=== PATIENT | female | born 1995 | race Caucasian/White ===

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

== ENCOUNTER 2017-10-05 01:00 | Outpatient (CLI) | payer OTHER ==
[2017-10-05 01:34] VITALS: BP 119/61; PULSE 90; RESP 16; TEMP 97.6
--- NOTE | 2017-10-22 08:37 | P.MSEPDOC ---
Presenting Problems - Arrival Data Date of Arrival on Unit: 10/05/17 Time of Arrival on Unit: 00:55 Mode of Transport: Wheelchair - Complaint OB-Reason for Admission/Chief Complaint: Vaginal Bleeding Comment: bright red bleeding during intercourse Medical History - Information : 1 Para: 0 Term: 0 : 0 Abortions: Spontaneous or Elective: 0 Number of Living Children: 0 - Gestational Age Gestational Age by MELBA (wks/days): 23 Weeks and 4 Days Review of Systems - Review of Systems Constitutional: No problems Breast: No problems ENT: No problems Cardiovascular: No problems Respiratory: No problems Gastrointestinal: No problems Genitourinary: No problems Musculoskeletal: No problems Neurological: No problems Skin: No problems Vital Signs - Temperature Temperature: 97.6 F Temperature Source: Temporal Artery Scan - Pulse Right Sitting Brachial Pulse Rate: 90 Pulse Assessment Method: Automatic Cuff - Respirations Respiratory Rate: 16 Oxygen Delivery Method: Room Air O2 Sat by Pulse Oximetry: 97 - Blood Pressure Right Arm Sitting Blood Pressure: 119/61 Blood Pressure Mean: 80 Blood Pressure Source: Automatic Cuff Medical Screen Scoring (Pre) - Cervical Exam Dilation: Exam Deferred Effacement: Exam Deferred Membranes: Intact - Uterine Contractions Frequency: N/A Duration: N/A Intensity: N/A - Maternal Vital Signs Maternal Temperature: N/A Maternal Blood Pressure: N/A Signs of Preeclampsia: N/A Maternal Respirations: N/A - Pain Assessment Pain Scale Used: Numeric (1 - 10) Pain Intensity: 0 - Maternal Trauma Maternal Trauma: N/A - Assessment Baseline FHR: 146 Heart Rate - NICHD Category: Category I (Normal) = 0 - Total Score Total Score (Pre): 0 - Level of Risk Level of Risk: Low (0-5) Physician Notification (Pre) - Physician Notified Physician Notified Date: 10/05/17 Physician Notified Time: 01:24 Physician/Practitioner Notifed:: valerie Spoke With: valerie New Order Received: Yes - Notification Comment Comment: observe for two hours, if bleeding slows/stops, perform doppler and then send home with instruction to f/u with nivamie early next week. Disposition - Disposition OB Disposition: Discharge to home Discharge Date: 10/05/17 Discharge Time: 03:43 I agree with the RN Medical Screening Exam: Yes Risk & Benefit of care provided described in d/c instruction: Yes Diagnosis: SPOTTING COMPLICATING , THIRD TRIMESTER
== END 2017-10-05 03:43 | disposition home or self-care (01) ==
LOC: FBPOP 01:00
PROVIDERS: ATTEND Obstetrics & Gynecology Obstetrics
DX: O26.852 Spotting complicating pregnancy, second trimester (principal); Z3A.23 23 weeks gestation of pregnancy
CPT/HCPCS: 99213

== ENCOUNTER 2018-01-27 10:29 | Outpatient (CLI) | payer BC, OTHER ==
[2018-01-27 13:18] VITALS: BP 133/62; PULSE 94; RESP 17
--- NOTE | 2018-01-28 12:01 | P.MSEPDOC ---
Presenting Problems - Arrival Data Date of Arrival on Unit: 01/27/18 Time of Arrival on Unit: 10:30 Mode of Transport: Wheelchair - Complaint OB-Reason for Admission/Chief Complaint: Possible Onset of Labor Comment: pt here with c/o contractions that are 4-5 minutes apart since this am , reports + fm, denies lof/vb, abd soft and non tender Medical History - Information : 1 Para: 0 Term: 0 : 0 Abortions: Spontaneous or Elective: 0 Number of Living Children: 0 - Gestational Age Gestational Age by MELBA (wks/days): 39 Weeks and 6 Days Review of Systems - Review of Systems Constitutional: No problems Breast: No problems ENT: No problems Cardiovascular: No problems Respiratory: No problems Gastrointestinal: No problems Genitourinary: No problems Musculoskeletal: No problems Neurological: No problems Skin: No problems Vital Signs - Pulse Right Brachial Pulse Rate: 94 Pulse Assessment Method: Automatic Cuff - Respirations Respiratory Rate: 17 Oxygen Delivery Method: Room Air - Blood Pressure Right Arm Blood Pressure: 133/62 Blood Pressure Mean: 85 Blood Pressure Source: Automatic Cuff Medical Screen Scoring (Pre) - Cervical Exam Dilation: 1-3 cm = 1 Effacement: More than 50% = 2 Membranes: Intact - Uterine Contractions Frequency: > or = 36 weeks =2 Duration: > 40 seconds = 2 Intensity: N/A - Maternal Vital Signs Maternal Temperature: N/A Maternal Blood Pressure: N/A Signs of Preeclampsia: N/A Maternal Respirations: N/A - Pain Assessment Pain Location and Character: Abdomen Pain Scale Used: Numeric (1 - 10) Pain Intensity: 8 Pain Description: *Acute, Cramping Pain Radiation Location: none Pain Frequency: Intermittent Pain Duration: 2 Pain Duration Units: Hours Pain Aggravating Factors: Contractions - Maternal Trauma Maternal Trauma: N/A - Assessment Baseline FHR: 135 Heart Rate - NICHD Category: Category I (Normal) = 0 NST: Reactive - Total Score Total Score (Pre): 7 - Level of Risk Level of Risk: Medium (6-9) Physician Notification (Pre) - Physician Notified Physician Notified Date: 01/27/18 Physician Notified Time: 11:51 Physician/Practitioner Notifed:: Dr Santos Spoke With: Dr Santos New Order Received: Yes - Notification Comment Comment: Dr Santos on unit, per orders monitored pt for additional hour, cervix remains the same, pt ok to dc home Disposition - Disposition OB Disposition: Discharge to home, Written follow up instructions reviewed Discharge Date: 01/27/18 Discharge Time: 11:05 I agree with the RN Medical Screening Exam: Yes Risk & Benefit of care provided described in d/c instruction: Yes Diagnosis: FALSE LABOR AT OR AFTER 37 COMPLETED WEEKS OF GESTATION
== END 2018-01-27 11:05 | disposition home or self-care (01) ==
LOC: FBPOP 10:29
PROVIDERS: ATTEND Obstetrics & Gynecology
DX: O47.1 False labor at or after 37 completed weeks of gestation (principal); Z3A.39 39 weeks gestation of pregnancy
CPT/HCPCS: 59025; 99213

== ENCOUNTER 2018-01-27 17:09 | Inpatient (IN) | payer BC, OTHER ==
[2018-01-27] MEDS: LACTATED RINGERS 1,000 ML IV SCH ×2 (17:48→18:29)
[2018-01-27] MEDS ORDERED: CARBOPROST TROMETHAMINE 250 MCG/ML 1 ML AMP IM PRN (17:52)
[2018-01-27] MEDS ORDERED: LIDOCAINE 0.5% (PF) 5 MG/ML (50 ML SDV) SQ PRN (17:52)
[2018-01-27] MEDS ORDERED: OXYTOCIN 10 UNIT/ML 1 ML VIAL IM PRN (17:52)
[2018-01-27] MEDS ORDERED: METHYLERGONOVINE 0.2 MG/ML 1 ML AMP IM PRN (17:52)
[2018-01-27] MEDS ORDERED: TERBUTALINE 1 MG/ML VIAL SQ PRN (17:52)
[2018-01-27 18:35] LABS: Basophils % (A) 0 %; Eosinophils # (A) 0.1 k/uL (0-0.7); Eosinophils % (A) 0 %; HCT 39.5 % (34.0-46.0); HGB 13.4 gm/dL (11.4-16.0); Lymphocytes # (A) 1.2 k/uL (1.0-4.8); Lymphocytes % (A) 5 %; MCH 27.5 pg (25.0-35.0); MCHC 33.9 g/dL (31.0-37.0); Mean Platelet Volume 7.6; Monocytes # (A) 0.6 k/uL (0-1.0); Monocytes % (A) 3 %; Neutrophils # (A) 21.6 k/uL (1.3-7.7); Neutrophils % (A) 92 %; Platelet Count 411 k/uL (150-450); RBC 4.88 m/uL (3.80-5.40); RDW 13.4 % (11.5-15.5); WBC 23.5 k/uL (4.0-11.0)
[2018-01-27 18:40] VITALS: BMI 32.2
[2018-01-27] MEDS ORDERED: ROPIVACAINE 100 MG, fentaNYL (PF) 200 MCG in SODIUM CHLORIDE 0.9% 76 ML EPIDURAL ONE (19:01)
[2018-01-27] MEDS ORDERED: OXYTOCIN 20 UNITS/1000 ML NS 1,000 ML IV SCH ×2 (19:30→21:30)
--- NOTE | 2018-01-27 20:36 | P.HPOB ---
History of Present Illness H&P Date: 01/27/18 Chief Complaint: 39-6/7 weeks, spontaneous rupture of membranes, early active labor The patient is a 22-year-old 1 para 0 admitted at 39-6/7 weeks as established by last menstrual period and confirmed by second trimester ultrasound. She is admitted with documented spontaneous rupture of membranes in early active labor with all signs reassuring. Her has been uncomplicated though she is rubella nonimmune. Group B strep status is negative. Obstetrical history: 1 para 0 with current statistics listed in history of present illness. EDC of 01/28/2018 was established by last menstrual period and confirmed by second trimester ultrasound. Laboratory workup demonstrates a blood type of O+ with a negative antibody screen. Rubella status is immune. The remainder of the laboratory workup was within normal limits aside from an initial urinary tract infection treated and cured. Early Glucola as well as second trimester Glucola were within normal limits. Group B strep status is negative. Gynecologic history: Unremarkable with no history of any infections to include STDs. Review of Systems Review of systems is confined to history of present illness. Past Medical History Past Medical History: No Reported History History of Any Multi-Drug Resistant Organisms: None Reported Past Surgical History: No Surgical Hx Reported Additional Past Surgical History / Comment(s): tubes in ears as a child Past Anesthesia/Blood Transfusion Reactions: No Reported Reaction Past Psychological History: No Psychological Hx Reported Smoking Status: Never smoker Past Alcohol Use History: None Reported Past Drug Use History: None Reported - Past Family History Mother Family Medical History: No Reported History Medications and Allergies Home Medications Medication Instructions Recorded Confirmed Type Pnv,Calcium 72/Iron/Folic Acid 1 tab PO DAILY 10/05/17 01/27/18 History [ Plus Tablet] Allergies Allergy/AdvReac Type Severity Reaction Status Date / Time nickel Allergy Rash/Hives Verified 01/27/18 20:15 Exam Vital Signs Pulse Resp BP 01/27/18 18:32 100 18 135/79 Intake and Output 01/27/18 01/27/18 01/27/18 06:59 14:59 22:59 Other: Weight 85.275 kg In general, this is a well-developed, well-nourished white female in no acute distress. Her heart has a regular rhythm and rate without murmur. Her lungs are clear to auscultation bilaterally in all downey. Her abdomen is gravid, nondistended, has normal active bowel sounds, is soft, nontender, and without any palpable masses aside from uterine fundus. Her extremities are without any cyanosis, clubbing, or significant edema and are nontender to palpation bilaterally. Digital cervical examination performed by the nursing staff demonstrates her cervix to be 6-7 cm dilated, 50% effaced, the vertex in presentation at -1-2 station. Spontaneous rupture of membranes for clear fluid has been documented Results Result Diagrams: 01/27/18 17:50 Abnormal Lab Results - Last 24 Hours (Table) 01/27/18 Range/Units 17:50 WBC 23.5 H (4.0-11.0) k/uL Neutrophils # 21.6 H (1.3-7.7) k/uL Assessment and Plan (1) Spontaneous rupture of amniotic membranes Current Visit: Yes Status: Acute Code(s): LBD5501 - SNOMED Code(s): 902082748 (2) Active labor at term Current Visit: Yes Status: Acute Code(s): SLQ4477 - SNOMED Code(s): 01613910 Plan: The patient has been admitted for active management of labor. She will continue to have close maternal and surveillance and expectant management will be practiced. An epidural catheter has been placed for analgesia. Pitocin augmentation has been added as contractions spaced out after the epidural was placed.
[2018-01-27] MEDS ORDERED: diphenhydrAMINE 50 MG CAP PO PRN (21:29)
[2018-01-27] MEDS ORDERED: SIMETHICONE 80 MG CHEWABLE PO PRN (21:29)
[2018-01-27] MEDS ORDERED: diphenhydrAMINE 50 MG/ML 1 ML VIAL IVP PRN ×2 (21:29)
[2018-01-27] MEDS ORDERED: ZOLPIDEM 5 MG TAB PO PRN (21:29)
[2018-01-27] MEDS ORDERED: HYDROcodone/APAP 7.5-325MG 1 EACH TAB PO PRN (21:29)
[2018-01-27] MEDS ORDERED: WITCH HAZEL 1 EACH MED..PAD TOPICAL PRN (21:29)
[2018-01-27] MEDS ORDERED: diphenhydrAMINE 25 MG CAP PO PRN (21:29)
[2018-01-27] MEDS ORDERED: BENZOCAINE/MENTHOL SPRAY 1 GM/SPRAY AEROSOL TOPICAL PRN (21:29)
[2018-01-27] MEDS ORDERED: LANOLIN CREAM 5 GM TUBE TOPICAL PRN (21:29)
[2018-01-27] MEDS ORDERED: ACETAMINOPHEN TAB 325 MG TAB PO PRN (21:29)
[2018-01-27] MEDS ORDERED: HYDROCORTISONE 2.5% RECTAL CREAM 30 GM TUBE RECTAL PRN (21:29)
[2018-01-27] MEDS ORDERED: HYDROcodone/APAP 5-325MG 1 EACH TAB PO PRN (21:29)
[2018-01-27] MEDS ORDERED: INFLUENZA VACCINE (6 MOS+) 60 MCG/0.5 ML SYRINGE IM ONE (21:34)
--- NOTE | 2018-01-27 21:36 | P.PROBDLV ---
Vaginal Delivery Note - . Vaginal Delivery Note: The patient is a 22-year-old 1 para 0 admitted at 39-6/7 weeks by good dating parameters perches admitted in early active labor with documented spontaneous rupture of membranes with clear fluid. On admission, all signs reassuring. Her has been entirely uncomplicated though there is conflicting data as to whether she is rubella immune or nonimmune. She had an epidural catheter placed shortly after admission and then had Pitocin augmentation as contractions spaced. She made relatively quick progress through the active phase of labor thereafter to complete and +1 station. She pushed over the course of approximately 20 minutes to a normal spontaneous vaginal delivery of a viable 7 lbs. 3 oz. baby boy with Apgars of 9 at 1 minute and 9 at 5 minutes delivered in the left occiput anterior position. There was a nuchal cord 1 which was reduced following delivery of the . The placenta was delivered spontaneously, intact, and grossly normal with a grossly normal three-vessel cord inserted approximately 5 cm from the margin of the placental disc. There are no lacerations of the perineum, vagina, or cervix. Estimated blood loss for the case was approximately 100 mL. There were no complications. All sponge, instrument, and needle counts were correct. Both mother and are resting comfortably in recovery.
[2018-01-27] MEDS: IBUPROFEN 600 MG TAB PO PRN (23:09)
[2018-01-28] MEDS: IBUPROFEN 600 MG TAB PO PRN ×3 (05:16→23:38)
[2018-01-28] MEDS: SENNOSIDES-DOCUSATE SODIUM 1 EACH TAB PO SCH ×2 (07:47→20:16)
--- NOTE | 2018-01-28 11:48 | P.PNOBGVD ---
Subjective - Subjective Patient reports: Reports appetite normal, Reports voiding normally, Reports pain well controlled, Reports ambulating normally : doing well, other (Parents requesting circumcision tomorrow prior to discharge.) Objective - Latest Vital Signs Latest vital signs: Vital Signs Temp Pulse Resp BP 01/28/18 07:43 97.5 F L 88 16 128/70 01/28/18 04:00 98.7 F 89 16 111/60 01/27/18 23:26 99.6 F 113 H 18 114/61 01/27/18 22:56 100 18 121/62 01/27/18 22:26 100.8 F H 95 18 121/62 01/27/18 22:11 101 H 18 115/56 01/27/18 21:56 104 H 18 124/59 01/27/18 21:41 100.5 F H 109 H 18 121/64 01/27/18 21:26 100.9 F H 118 H 18 119/58 01/27/18 18:32 100 18 135/79 Intake and Output 01/27/18 01/28/18 01/28/18 22:59 06:59 14:59 Intake Total 1005.85 Balance 1005.85 Intake: Intake, IV Titration 1005.85 Amount Lactated Ringers 1,000 ml 1000 @ 125 mls/hr IV .Q8H SHANTEL Rx#:[id number] Oxytocin 20 Units/1000 ml 5.85 Ns 1,000 ml @ 1 MILLIUNIT/MIN 3 mls/hr IV .Q24H SHANTEL Rx#:[id number] Other: # Voids 2 1 Weight 85.275 kg - Exam Extremities: Present: normal Abdomen: Present: normal appearance, soft Uterus: Present: normal, firm (The uterine fundus as tonic and nontender below the umbilicus.) - Labs Labs: Abnormal Lab Results - Last 24 Hours (Table) 01/27/18 Range/Units 17:50 WBC 23.5 H (4.0-11.0) k/uL Neutrophils # 21.6 H (1.3-7.7) k/uL Assessment and Plan (1) Spontaneous rupture of amniotic membranes Current Visit: Yes Status: Acute Code(s): [id number] - SNOMED Code(s): 270369099 (2) Active labor at term Current Visit: Yes Status: Acute Code(s): OGP8302 - SNOMED Code(s): 75599179 (3) Normal spontaneous vaginal delivery Current Visit: Yes Status: Acute Code(s): O80 - ENCOUNTER FOR FULL-TERM UNCOMPLICATED DELIVERY SNOMED Code(s): 18331519 Plan: Continue routine care. The patient will likely be discharged tomorrow morning following circumcision of the baby which is at she and her significant other's request. There is some question as to her rubella status as is documented as both immune and nonimmune in the chart. This can be explored tomorrow when the office is open and appropriate action taken.
--- NOTE | 2018-01-29 07:55 | P.DS ---
Providers Date of admission: 01/27/18 17:41 Expected date of discharge: 01/29/18 Attending physician: David Santos Primary care physician: Stated None Hospital Course: This is a 22-year-old white female 1 para 0 EDC 01/28/2018 at 39-6/7 weeks' gestation. Patient presented in spontaneous active labor. was essentially unremarkable, rubella status immune, group B strep negative, blood type O positive. Please see dictated history and physical for details. Patient was admitted, spontaneous amniorrhexis revealed clear fluid. She went on to deliver a liveborn male infant with scores of 9 and 9 at one and 5 minutes respectively. Infant weighed 3255 g or 7 lbs. 3 oz. Estimated blood loss 100 mL's. There was a nuchal cord 1 that was reduced. No stitches were necessary. Please see dictated delivery note for details. This morning the patient is doing well. She is voiding, ambulating and passing flatus without difficulty. Vital signs are stable and she is afebrile. Fundus is firm and in the midline, symmetric and 18 week size. Extremities are negative for edema. infant is doing well. Circumcision has been performed. Patient is being discharged home in very good condition. She will follow-up in the office with me in 6 weeks. I have reminded her no intercourse, tampons or douching. She will use [id number] Motrin products as needed for pain, she will call with any fevers shakes or chills, foul smelling or copious lochia. I've asked the patient to call with any foul smelling or increased vaginal bleeding, with any pain not alleviated by [id number] products, with any breast issues, or indeed with any questions or concerns. We have briefly discussed options for contraception and we will review this further in the office. Patient Condition at Discharge: Good Plan - Discharge Summary Discharge Rx Participant: No New Discharge Prescriptions: No Action Pnv,Calcium 72/Iron/Folic Acid [ Plus Tablet] 1 tab PO DAILY Discharge Medication List Pnv,Calcium 72/Iron/Folic Acid [ Plus Tablet] 1 tab PO DAILY 10/05/17 [ History] Follow up Appointment(s)/Referral(s): Clarisse East MD [STAFF PHYSICIAN] - 6 Weeks Discharge Disposition: HOME SELF-CARE
[2018-01-29 08:59] VITALS: BP 115/83; PULSE 86; RESP 18; TEMP 97.5
[2018-01-29] MEDS: IBUPROFEN 600 MG TAB PO PRN (09:20)
[2018-01-29] MEDS: SENNOSIDES-DOCUSATE SODIUM 1 EACH TAB PO SCH (09:20)
== END 2018-01-29 15:15 | disposition home or self-care (01) | DRG 807 ==
LOC: FBPOP 17:09 → 4FBP 17:41
PROVIDERS: ADMIT Obstetrics & Gynecology; ATTEND Obstetrics & Gynecology
PROC: 10E0XZZ Delivery of Products of Conception, External Approach (ICD-10-PCS; principal; 2018-01-27)
PROC: 3E0R3NZ Introduction of Analgesics, Hypnotics, Sedatives into Spinal Canal, Percutaneous Approach (ICD-10-PCS; principal; 2018-01-27)
PROC: 00HU33Z Insertion of Infusion Device into Spinal Canal, Percutaneous Approach (ICD-10-PCS; principal; 2018-01-27)
DX: O69.81X0 Labor and delivery complicated by cord around neck, without compression, not applicable or unspecified (principal); Z37.0 Single live birth; Z3A.39 39 weeks gestation of pregnancy
CPT/HCPCS: 59025; 85025; 86850; 86900; 86901; 90686; 99213